=== PATIENT | male | born 1950 | race Caucasian/White ===

== ENCOUNTER → 2017-09-14 | Outpatient (CLI) | payer OTHER ==
[~2017-09-14] MED LIST: ASPEC81 PO; CRD200 PO; LRT5 PO; METO50TA8 PO; SIMV10TA2 PO; SYN75 PO
[2017-09-14 10:08] LABS: AST/SGOT 39 U/L (15-37); BLOOD UREA NITROGEN 16 mg/dl (7-18); CHOLESTEROL 139 mg/dl (0-200); CREATININE 1.18 mg/dl (0.60-1.40)
[2017-09-14 10:18] LABS: ALT/SGPT 48 U/L (12-78); LDL CHOLESTEROL CALCULATED 78 mg/dl
== END | disposition home or self-care (01) ==
LOC: C.LABBC 08:43
PROVIDERS: ATTEND Internal Medicine
DX: E78.00 Pure hypercholesterolemia, unspecified (principal); E03.9 Hypothyroidism, unspecified; Z12.5 Encounter for screening for malignant neoplasm of prostate

== ENCOUNTER 2025-03-07 17:02 | Inpatient (IN) ==
--- NOTE | 2025-03-07 17:52 | Emergency Department Note ---
Impression & Plan Cellulitis of scrotum ED Provider Note NAME: UZIEL RODRIGUEZ AGE: 74 SEX: M : 1950 ARRIVES VIA: Walk-In INFORMANT: Patient, ED PROVIDER(S): Cliff Leija DO CHIEF COMPLAINT: Scrotal pain and swelling HPI: The patient is a 74-year-old male who presented to the emergency department with several days of scrotal pain and swelling. He was seen by his primary care physician. He started having blistering around the shaft of his penis. This is why he came to the emergency department. He is noticed redness and induration around the scrotum. He did have an ultrasound prior to coming to the emergency department today. 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 Initially thought this could be related to a fungal infection. ROS: See above HPI for pertinent positives & negatives. A total of 10 systems reviewed and were otherwise negative. PAST MEDICAL HISTORY: See Below PAST SURGICAL HISTORY: See Below FAMILY HISTORY: See Below SOCIAL HISTORY: See Below HOME MEDICATIONS: See Below ALLERGIES: See Below VITALS: See Below PHYSICAL EXAMINATION: GENERAL: Patient is awake alert in no acute distress patient is resting comfortably and showing no signs of anxiety EYES: The conjunctivae are clear. The pupils are round and reactive. EARS, NOSE, MOUTH AND THROAT: The nose is without any evidence of any deformity. NECK: The neck is nontender and supple. RESPIRATORY: Normal respiratory effort is noted there is no evidence of wheezing rhonchi or rales CARDIOVASCULAR: Regular rate and rhythm noted there no murmurs rubs or gallops normal S1 normal S2. GASTROINTESTINAL: The abdomen is soft. Abdomen is nontender. : Scrotum is very erythematous and indurated. The skin on the penis does appear to have some desquamation of blister formation. This does not appear to be herpetic in nature but 1 coalescing blister. It is circumferential. MUSCULOSKELETAL/EXTREMITIES: There is no evidence of gross deformity full range of motion is noted in the hips and shoulders. SKIN: There is no obvious evidence of any rash. There are no petechiae, pallor or cyanosis noted. NEUROLOGIC: Patient is awake alert and oriented x3 MEDICAL DECISION MAKING: The patient is a 74-year-old male who presented to the emergency department for an evaluation of scrotal swelling and redness. The patient was seen by his family doctor today. He had an ultrasound which did not show any acute process. He started noticing some swelling over the shaft of his penis with some blistering and abnormality the skin. The patient presented to the emergency department for further evaluation. Evaluation of the area does appear to be consistent with a scrotal cellulitis. It is also possible this represents an underlying fungal infection with a secondary bacterial infection. The patient was treated with IV antibiotics in emergency department. He was reevaluated multiple times. I discussed his condition with the on-call urologist as well as the on-call [facility] hospitalist. They have agreed to evaluate the patient in the emergency department for further management and disposition. Triage Nursing notes reviewed. Prior medical records reviewed Vital Signs: reviewed and remarkable for elevated blood pressure. Differential diagnosis: Testicular torsion, mass, infection, hernia, hydrocele, epididymitis, STI, trauma, intra-abdominal process, as well as other pathologies. ER treatment provided: See below Diagnostics interpreted by me: ECG: none Cardiac Monitoring: An order was placed for continuous cardiac monitoring. The monitor shows a rate of 77 bpm with sinus rhythm. Laboratory studies: As stated above and show below. Imaging studies: See below. Radiographic imaging was reviewed by myself Consultation(s): I discussed this case with Dr. Clancy who is on-call for the [facility]. I discussed this case with Dr. Lane who is on for urology. Past Med/Surg History Problem List (Updated 03/07/25 @ 20:08 by Cliff Leija DO) Cellulitis of scrotum (Acute) Cataract Osteoarthritis of right index finger History of colon polyps Esophageal stenosis Numbness and tingling of both feet Since approximately 2016 Elevated hemoglobin November 2019 follow-up test December 2019 normal Esophageal dysphagia EGD November 2019 esophagitis GERD (gastroesophageal reflux disease) Health care maintenance (Chronic) Actinic keratosis Hypercholesterolemia (Acute) Atorvastatin 20 mg daily for management Hypothyroidism (Acute) On thyroid supplement Impaired fasting glucose (Acute) Moderate mitral regurgitation (Acute) FOLLOWS WITH DR. RODRIGUEZ Permanent atrial fibrillation (Acute) REASON FOR METOPROLOL Medical History Finger tendinitis Finger swelling Polyp, colonic Neuropathy Since approximately 2016 Permanent atrial fibrillation on eliquis/metoprolol---follows with Dr. Rodriguez Moderate mitral regurgitation follows with Dr. Rodriguez Hypothyroidism Hypercholesterolemia Gout GERD (gastroesophageal reflux disease) Flatulence hx Abdominal bloating hx Elevated serum creatinine hx Unspecified skin changes Finger pain resolved Esophageal stenosis hx Osteoarthritis Dysphagia hx Numbness MILD IN BLE Sessile colonic polyp Surgical History Hx of cataract extraction left and right History of esophagogastroduodenoscopy (EGD) History of esophageal dilatation History of anesthesia reaction HEADACHE WITH FIRST CARDIOVERSION [place] teeth removed History of colonoscopy History of cardioversion X 3 History of biopsy TONGUE BIOPSY (BENIGN) Family History Father A-fib Mother Gout Stroke Other No family history of adverse response to anesthesia Denies family history of Colon cancer Ovarian cancer Prostate cancer Myocardial infarction Breast cancer Social History Smoking Status: Never smoker Second Hand Exposure: No; Do You Dip or Chew Tobacco: No; Hx Alcohol Use: Yes Alcohol type: beer Hx Substance Use: No Preferred Language: Greenlandic Communication Ability: Effective Visual Impairment: No Limitations Hearing Ability: Normal School Age Program Associate Required: No Beliefs That Will Affect Care: None marital status: Current Living Situation: Spouse 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 Feels Safe at Home: Yes Childhood Exposure to Second-Hand Smoke: Yes Dental Care, Regularly: Yes Physical Activity Frequency: 1-2 Times per Week Seatbelt Use: always Sunscreen Use: Yes Assistive Devices: Glasses Allergies Allergies Allergy/AdvReac Type Severity Reaction Status Date / Time HAND CREAMS Allergy Mild rash/rednes Uncoded 03/07/25 12:12 s Home Meds Home Medications Medication Instructions Recorded Confirmed [id number] 5 mg-zeaxanth 1 cap PO QAM 04/22/24 03/07/25 1 mg-bilberry 7.5 mg-herbal capsule (Macular Health Formula) Previous Rx's Medication Instructions Recorded metoprolol succinate 50 mg 50 mg PO QAM #90 tabs 08/08/24 tablet,extended release 24 hr apixaban 5 mg tablet 5 mg PO BID #180 tabs 08/09/24 atorvastatin 20 mg tablet 20 mg PO QPM #90 tabs 08/09/24 levothyroxine 75 mcg tablet 75 mcg PO QAM #90 tabs 08/09/24 nystatin 100,000 unit/gram topical 1 applic topical BID #30 grams 03/07/25 ointment sulfamethoxazole 800 1 tab PO BID 10 days #20 tabs 03/07/25 mg-trimethoprim 160 mg tablet (Bactrim DS) Results & Data (ED) Vital Signs Vital Signs - 24 hr 03/07/25 17:07 03/07/25 18:01 03/07/25 18:01 Temperature 36.6 C Temperature Source Temporal Artery Scan Pulse Rate 109 H Pulse Rate [Right Finger] 71 Pulse Rhythm [Right Finger] Regular Pulse Strength [Right Finger] Normal Respiratory Rate 18 12 Respiratory Effort / Characteristics Non-Labored Spontaneous Non-Labored Respiratory Depth Normal Normal Respiratory Pattern Regular Regular Blood Pressure 160/84 H Blood Pressure [Right Arm] 126/91 Blood Pressure Mean 109 Blood Pressure Mean [Right Arm] 102 Blood Pressure Position [Right Arm] Lying Pulse Oximetry 96 96 96 Oxygen Delivery Method Room Air Room Air Room Air Sepsis Recent Fever Within 48 Hours No Sepsis New/Unexplained Change in Mental Status No Sepsis Action Taken by Nursing No Action Required 03/07/25 18:19 03/07/25 19:21 Temperature Temperature Source Pulse Rate 79 Pulse Rate [Right Finger] 77 Pulse Rhythm [Right Finger] Pulse Strength [Right Finger] Respiratory Rate 16 Respiratory Effort / Characteristics Respiratory Depth Respiratory Pattern Blood Pressure Blood Pressure [Right Arm] 163/102 H Blood Pressure Mean Blood Pressure Mean [Right Arm] 122 Blood Pressure Position [Right Arm] Pulse Oximetry 97 Oxygen Delivery Method Sepsis Recent Fever Within 48 Hours Sepsis New/Unexplained Change in Mental Status Sepsis Action Taken by Long Term Medications Current Medication List: was personally reviewed by me Laboratory Data Attestation: I reviewed the patient's lab results. 03/07/25 18:05 03/07/25 18:05 Lab Results 03/07/25 03/07/25 Range/Units 18:05 19:15 WBC 13.49 H (4.8-10.8) K/ul RBC 6.09 (4.70-6.10) M/uL Hgb 17.0 (14.0-18.0) g/dl Hct 50.5 (42.0-52.0) % MCV 82.9 (80.0-100.0) fL MCH 27.9 (25.0-34.0) pg MCHC 33.7 (32.0-36.0) g/dL RDW Std Deviation 41.8 (36.4-46.3) fL RDW Coeff of Dat 14.4 (11.5-14.5) % Plt Count 245 (130-400) K/uL MPV 10.5 (9.4-12.4) fL Immature Gran % (Auto) 0.4 % Neut % (Auto) 69.6 % Lymph % (Auto) 15.9 % Tama % (Auto) 7.6 % Eos % (Auto) 5.9 % Baso % (Auto) 0.6 % Neut # (Auto) 9.40 H (1.40-6.50) K/uL Lymph # (Auto) 2.14 (1.20-3.40) K/uL Tama # (Auto) 1.03 H (0.11-0.59) K/uL Eos # (Auto) 0.79 H (0.00-0.50) K/uL Baso # (Auto) 0.08 (0.00-0.20) K/uL Immature Gran # (Auto) 0.05 (0.01-0.20) K/uL Sodium 141 (136-145) mmol/L Potassium 4.2 (3.5-5.1) mmol/L Chloride 104 (98-107) mmol/L Carbon Dioxide 28 (21-32) mmol/L Anion Gap 9 (3-11) BUN 16 (6-23) mg/dl Creatinine 1.24 (0.6-1.4) mg/dl Est Cr Clr Drug Dosing 62.6 ml/min eGFR 61.77 BUN/Creatinine Ratio 12.9 (10-20) Glucose 75 (70-99(Fasting)) mg/dl Calcium 9.7 (8.6-10.3) mg/dl Total Bilirubin 1.0 (0.2-1.0) mg/dl AST 24 (13-39) U/L ALT 25 (7-52) U/L Alkaline Phosphatase 77 (34-104) U/L C-Reactive Protein < 0.50 (0-0.5) mg/dl Total Protein 7.8 (6.0-8.3) gm/dl Albumin 4.2 (3.4-5.0) gm/dl Globulin 3.6 (2.5-4.0) gm/dl Albumin/Globulin Ratio 1.2 (0.9-2) Procalcitonin < 0.02 (0-0.5) ng/ml Urine Color Yellow Urine Appearance Clear (Clear) Urine pH 7.0 (4.5-7.5) Ur Specific [place] 1.017 (1.000-1.030) Urine Protein Negative (Negative) Urine Glucose (UA) Negative (Negative) Urine Ketones Negative (Negative) Urine Blood Negative (Negative) Urine Nitrite Negative (Negative) Urine Bilirubin Negative (Negative) Urine Urobilinogen Negative (Negative) Ur Leukocyte Esterase Negative (Negative) Urine Comment Administered Medications Discontinued Medications Piperacillin Sod/Tazobactam Sod (Zosyn) 4.5 gm in 100 mls @ 200 mls/hr IV NOW ONE; Protocol Stop: 03/07/25 18:19 Last Infusion: 03/07/25 18:44 Dose: Infused Documented By: Admin: 03/07/25 18:10 Dose: 200 mls/hr Documented By: NNEKA Imaging Data Attestation: I personally reviewed and interpreted this imaging study as follows: My Impression: CT of the abdomen and pelvis was obtained in the emergency department. My interpretation is no free air in the scrotal wall, final report below. Radiologist's Impression: Abdomen/Pelvis CT 03/07/25 18:48 EXAMINATION: Abdomen and pelvis CT without CLINICAL HISTORY: Scrotal swelling since last night PRIORS: None TECHNIQUE: Contiguous axial images were obtained through the abdomen and pelvis without the use of intravenous contrast. Sagittal and coronal reformations are supplied. FINDINGS: Lung bases unremarkable. Atherosclerotic disease of the coronary arteries in the [id number]. Evaluation of solid organs is limited without the use of intravenous contrast. Allowing for this, the liver, gallbladder, pancreas, spleen, stomach, adrenals, aorta and IVC are morphologically unremarkable. Moderate atherosclerotic disease of the abdominal aorta. Multiple calcified granulomata present in the spleen. The kidneys are symmetric in size with no obstructing calculus or hydronephrosis. Large amount of formed stool and gas present throughout the colon. No dilated loops of bowel. Urinary bladder distends normally. Diffuse edema present in the subcutaneous tissues of the supra scrotal/penile area. Skin edema of the scrotum is noted with bilateral hydroceles present. Small bilateral inguinal hernias present. The testicles themselves are not well-visualized. No gas within the scrotum or perineum. Moderate osseous demineralization and degenerative change throughout the spine. IMPRESSION: Subcutaneous edema of the supra scrotal soft tissues with skin thickening and edema of the scrotal wall, bilateral hydroceles and no subcutaneous gas identified. Findings favor cellulitis in the proper clinical setting. Scrotal ultrasound could also be considered as it is more sensitive and specific for scrotal and testicular pathology. ACT 112: Positive. There are findings on this examination that require communication between the performing entity and the patient following Patient Test Result Information Act ([place] ACT 112) guidelines. Electronically signed by Tiny Whaley 03-07-2025 8:02 PM Discharge Plan Visit Data Chief Complaint: Penis Pain Stated Complaint: GENITAL SWELLING SINCE LAST NIGHT ED Provider: Cliff Leija Discharge Problem: Cellulitis of scrotum Patient Disposition: Being Evaluated by Hospitalist Condition: Fair Forms Stand Alone Forms: My [facility] Prescriptions Prescriptions: No Action metoprolol succinate 50 mg tablet extended release 24 hr 50 mg PO QAM Qty: 90 3RF levothyroxine 75 mcg tablet 75 mcg PO QAM Qty: 90 3RF atorvastatin 20 mg tablet 20 mg PO QPM Qty: 90 3RF apixaban 5 mg tablet 5 mg PO BID Qty: 180 3RF sulfamethoxazole-trimethoprim [Bactrim DS] 800-160 mg tablet 1 tab PO BID 10 Days Qty: 20 0RF nystatin 100,000 unit/gram ointment 1 applic topical BID Qty: 30 0RF Macular Health Formula 5-1-7.5 mg Capsule 1 cap PO QAM Referrals Referrals: Palomo Navarro MD [Primary Care Provider] -
[2025-03-07] MEDS: PIPERACILLIN/TAZOBACTAM 4.5 GM/100 ML BAG IV ONE (18:10)
[2025-03-07 18:16] LABS: Hematocrit (blood only) 50.5 % (42.0-52.0); Hemoglobin 17.0 g/dl (14.0-18.0); Immature Granulocytes # (auto) 0.05 K/uL (0.01-0.20); Immature Granulocytes % (auto) 0.4 %; Mean Corpuscular Hemoglobin 27.9 pg (25.0-34.0); Mean Corpuscular Volume 82.9 fL (80.0-100.0); Platelet Count 245 K/uL (130-400); RDW Standard Deviation 41.8 fL (36.4-46.3); Red Blood Count 6.09 M/uL (4.70-6.10); White Blood Count 13.49 K/ul (4.8-10.8)
[2025-03-07 18:32] LABS: Alanine Aminotransferase 25 U/L (7-52); Albumin Globulin Ratio 1.2 (0.9-2); Albumin Level 4.2 gm/dl (3.4-5.0); Alkaline Phosphatase 77 U/L (34-104); Anion Gap 9 (3-11); Bilirubin,Total 1.0 mg/dl (0.2-1.0); Blood Urea Nitrogen 16 mg/dl (6-23); Calcium 9.7 mg/dl (8.6-10.3); Carbon Dioxide 28 mmol/L (21-32); Chloride 104 mmol/L (98-107); Creatinine Clr Calc Pharmacy 62.6 ml/min; Globulin 3.6 gm/dl (2.5-4.0); Glucose 75 mg/dl (70-99(Fasting)); Potassium 4.2 mmol/L (3.5-5.1); Sodium 141 mmol/L (136-145); Total Protein 7.8 gm/dl (6.0-8.3)
[2025-03-07] MEDS ORDERED: VANCOMYCIN CONSULT ACTIVE PRN ×2 (19:25→21:54)
[2025-03-07 19:30] LABS: Appearance Urine Clear (Clear); Glucose Urine UA Negative (Negative)
--- NOTE | 2025-03-07 19:41 | History & Physical Report ---
Date of Service March 07, 2025 Assessment & Plan (1) Cellulitis of scrotum: (2) Permanent atrial fibrillation: (3) Hypercholesterolemia: (4) Hypothyroidism: Plan 74yo male with history of permanent atrial fibrillation on Apixaban anticoagulation presenting with rapid progression of scrotal and penile swelling, preceded by 1+ week of tinea infection #Cellulitis of scrotum - patient afebrile, HD stable and non-toxic in appearance. CT with no evidence of Brandi's infection. -Observation to medical -Scrotal support for comfort -Vancomycin and Ceftriaxone for now -Urology consultation appreciated #Atrial fibrillation - rate controlled. Patient on anticoagulation with Api xaban -Continue Apixaban 5mg po BID -Continue Metoprolol #Hyperlipidemia - chronic. stable -Continue Atorvastatin #Hypothyroidism - chronic. stable. TSH last within normal limits at 2.030 on 08/17/24 -Continue Synthroid Full Code Apixaban for AF, DVT prophylaxis History of Present Illness Chief Complaint: scrotal swelling, rash Primary Care Provider: Palomo Navarro MD Uziel Chino is a pleasant 74yo male with history of atrial fibrillation on Apixaban anticoagulation, HLP and GERD presenting with groin rash and progressive swelling in the scrotum and penis. Patient is a fairly avid cyclist. He last biked approximately one week ago. Patient noted some symptoms of tinea cruris approximately 10 days ago with itching in his groin and skin irritation. He let it go for a couple of days then started using some over the counter cream from [employer] and powder. The itching has progressively worsened over the last 10 days. Last night around 17:00 patient noted some scrotal swelling which was markedly increased today. He urinated around 09:30 and noted some swelling at the base of his penis - approximately 2cm x 1cm x 1cm. He was seen in his PCPs office today at 12:30. He had a scrotal ultrasound performed which revealed no testicular masses or torsions. Prominent edematous scrotal wall without discrete fluid collection and no hydrocele. He was prescribed Nystatin powder and Bactrim. Patient returned home. Approximately 1 hour later he noted some markedly increased scrotal swelling which prompted him to come to the ER. He has been afebrile, no chills. No abdominal pain or pelvic pain. No nausea, vomiting, chest pain, palpitations. No additional complaints at this time. No trauma. No urinary complaints. In the ER he is afebrile, HD stable, NAD ER Course: Zosyn Allergies Allergy/AdvReac Type Severity Reaction Status Date / Time HAND CREAMS Allergy Mild rash/rednes Uncoded 03/07/25 12:12 s Home Medications Medication Instructions Recorded Confirmed Type [id number] 5 mg-zeaxanth 1 cap PO QAM 04/22/24 03/07/25 History 1 mg-bilberry 7.5 mg-herbal capsule ([employer] Formula) metoprolol succinate 50 mg 50 mg PO QAM #90 tabs 08/08/24 03/07/25 Rx tablet,extended release 24 hr apixaban 5 mg tablet 5 mg PO BID #180 tabs 08/09/24 03/07/25 Rx atorvastatin 20 mg tablet 20 mg PO QPM #90 tabs 08/09/24 03/07/25 Rx levothyroxine 75 mcg tablet 75 mcg PO QAM #90 tabs 08/09/24 03/07/25 Rx nystatin 100,000 unit/gram topical 1 applic topical BID #30 grams 03/07/25 03/07/25 Rx ointment sulfamethoxazole 800 1 tab PO BID 10 days #20 tabs 03/07/25 03/07/25 Rx mg-trimethoprim 160 mg tablet (Bactrim DS) Past Med/Surg History Problem List Cellulitis of scrotum (Acute) Cataract Osteoarthritis of right index finger History of colon polyps Esophageal stenosis Numbness and tingling of both feet Since approximately 2016 Elevated hemoglobin November 2019 follow-up test December 2019 normal Esophageal dysphagia EGD November 2019 esophagitis GERD (gastroesophageal reflux disease) Health care maintenance (Chronic) Actinic keratosis Hypercholesterolemia (Acute) Atorvastatin 20 mg daily for management Hypothyroidism (Acute) On thyroid supplement Impaired fasting glucose (Acute) Moderate mitral regurgitation (Acute) FOLLOWS WITH DR. RODRIGUEZ Permanent atrial fibrillation (Acute) REASON FOR METOPROLOL Medical History Finger tendinitis Finger swelling Polyp, colonic Neuropathy Since approximately 2016 Permanent atrial fibrillation on eliquis/metoprolol---follows with Dr. Rodriguez Moderate mitral regurgitation follows with Dr. Rodriguez Hypothyroidism Hypercholesterolemia Gout GERD (gastroesophageal reflux disease) Flatulence hx Abdominal bloating hx Elevated serum creatinine hx Unspecified skin changes Finger pain resolved Esophageal stenosis hx Osteoarthritis Dysphagia hx Numbness MILD IN BLE Sessile colonic polyp Surgical History Hx of cataract extraction left and right History of esophagogastroduodenoscopy (EGD) History of esophageal dilatation History of anesthesia reaction HEADACHE WITH FIRST CARDIOVERSION [place] teeth removed History of colonoscopy History of cardioversion X 3 History of biopsy TONGUE BIOPSY (BENIGN) Family History Father A-fib Mother Gout Stroke Other No family history of adverse response to anesthesia Denies family history of Colon cancer Ovarian cancer Prostate cancer Myocardial infarction Breast cancer Social History Smoking Status: Never smoker Second Hand Exposure: No; Do You Dip or Chew Tobacco: No; Hx Alcohol Use: Yes Alcohol type: beer Hx Substance Use: No Preferred Language: Cymraes Communication Ability: Effective Visual Impairment: No Limitations Hearing Ability: Normal 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: No Beliefs That Will Affect Care: None marital status: Current Living Situation: Spouse 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 Feels Safe at Home: Yes Childhood Exposure to Second-Hand Smoke: Yes Dental Care, Regularly: Yes Physical Activity Frequency: 1-2 Times per Week Seatbelt Use: always Sunscreen Use: Yes Assistive Devices: Glasses Review of Systems Review of Systems: All systems reviewed & are unremarkable except as noted in HPI & below Physical Exam Physical Exam: General: patient resting comfortably, NAD, non-toxic in appearance, AA&O x 4 Skin: warm, dry, intact, no rashes or lesions HEENT: NC/AT, PERRL, EOMI, anicteric sclera, conjunctiva without injection, external ear normal to inspection and nontender, nares patent, moist mucus membranes, dentition intact, no oropharyngeal lesions, neck supple, trachea midline, no LAD, no thyromegaly, no JVD Heart: +S1/S2, regular, no m/r/g Lungs: equal air entry bilaterally, no rales/rhonchi/wheezes Abd: +BS, soft, NT/ND, no masses/organomegaly/ascites Ext: warm, 2+ pulses in UE/LE bilaterally, no clubbing/cyanosis or edema Significant edema of testicles bilaterally with warmth, tenderness, skin thickening of perineum, no crepitus or bullae. No tenderness with palpation of testicles. Swelling of penis Groin with well demarcated erythematous rash with scaling and satelite lesions Neuro: nonfocal, patient AA&O x 4, speech intact, no facial droop, moving all extremities on command with equal strength 5/5 Results & Data Results & Data Vital Signs (Past 12 Hours) Vital Signs Temp Pulse Pulse Resp BP BP Pulse Ox 03/07/25 19:21 77 16 163/102 H 97 03/07/25 18:19 79 03/07/25 18:01 96 03/07/25 18:01 71 12 126/91 96 03/07/25 17:07 36.6 C 109 H 18 160/84 H 96 O2 Del Method 03/07/25 19:21 03/07/25 18:19 03/07/25 18:01 Room Air 03/07/25 18:01 Room Air 03/07/25 17:07 Room Air Laboratory Results Laboratory Results WBC 13.49 K/ul (4.8-10.8) H 03/07/25 18:05 RBC 6.09 M/uL (4.70-6.10) 03/07/25 18:05 Hgb 17.0 g/dl (14.0-18.0) 03/07/25 18:05 Hct 50.5 % (42.0-52.0) 03/07/25 18:05 MCV 82.9 fL (80.0-100.0) 03/07/25 18:05 MCH 27.9 pg (25.0-34.0) 03/07/25 18:05 MCHC 33.7 g/dL (32.0-36.0) 03/07/25 18:05 RDW Std Deviation 41.8 fL (36.4-46.3) 03/07/25 18:05 RDW Coeff of Dat 14.4 % (11.5-14.5) 03/07/25 18:05 Plt Count 245 K/uL (130-400) 03/07/25 18:05 MPV 10.5 fL (9.4-12.4) 03/07/25 18:05 Immature Gran % (Auto) 0.4 % 03/07/25 18:05 Neut % (Auto) 69.6 % 03/07/25 18:05 Lymph % (Auto) 15.9 % 03/07/25 18:05 [place] % (Auto) 7.6 % 03/07/25 18:05 Eos % (Auto) 5.9 % 03/07/25 18:05 Baso % (Auto) 0.6 % 03/07/25 18:05 Neut # (Auto) 9.40 K/uL (1.40-6.50) H 03/07/25 18:05 Lymph # (Auto) 2.14 K/uL (1.20-3.40) 03/07/25 18:05 [place] # (Auto) 1.03 K/uL (0.11-0.59) H 03/07/25 18:05 Eos # (Auto) 0.79 K/uL (0.00-0.50) H 03/07/25 18:05 Baso # (Auto) 0.08 K/uL (0.00-0.20) 03/07/25 18:05 Immature Gran # (Auto) 0.05 K/uL (0.01-0.20) 03/07/25 18:05 Sodium 141 mmol/L (136-145) 03/07/25 18:05 Potassium 4.2 mmol/L (3.5-5.1) 03/07/25 18:05 Chloride 104 mmol/L (98-107) 03/07/25 18:05 Carbon Dioxide 28 mmol/L (21-32) 03/07/25 18:05 Anion Gap 9 (3-11) 03/07/25 18:05 BUN 16 mg/dl (6-23) 03/07/25 18:05 Creatinine 1.24 mg/dl (0.6-1.4) 03/07/25 18:05 Est Cr Clr Drug Dosing 62.6 ml/min 03/07/25 18:05 eGFR 61.77 03/07/25 18:05 BUN/Creatinine Ratio 12.9 (10-20) 03/07/25 18:05 Glucose 75 mg/dl (70-99(Fasting)) 03/07/25 18:05 Calcium 9.7 mg/dl (8.6-10.3) 03/07/25 18:05 Total Bilirubin 1.0 mg/dl (0.2-1.0) 03/07/25 18:05 AST 24 U/L (13-39) 03/07/25 18:05 ALT 25 U/L (7-52) 03/07/25 18:05 Alkaline Phosphatase 77 U/L (34-104) 03/07/25 18:05 C-Reactive Protein < 0.50 mg/dl (0-0.5) 03/07/25 18:05 Total Protein 7.8 gm/dl (6.0-8.3) 03/07/25 18:05 Albumin 4.2 gm/dl (3.4-5.0) 03/07/25 18:05 Globulin 3.6 gm/dl (2.5-4.0) 03/07/25 18:05 Albumin/Globulin Ratio 1.2 (0.9-2) 03/07/25 18:05 Procalcitonin < 0.02 ng/ml (0-0.5) 03/07/25 18:05 Urine Color Yellow 03/07/25 19:15 Urine Appearance Clear (Clear) 03/07/25 19:15 Urine pH 7.0 (4.5-7.5) 03/07/25 19:15 Ur Specific [place] 1.017 (1.000-1.030) 03/07/25 19:15 Urine Protein Negative (Negative) 03/07/25 19:15 Urine Glucose (UA) Negative (Negative) 03/07/25 19:15 Urine Ketones Negative (Negative) 03/07/25 19:15 Urine Blood Negative (Negative) 03/07/25 19:15 Urine Nitrite Negative (Negative) 03/07/25 19:15 Urine Bilirubin Negative (Negative) 03/07/25 19:15 Urine Urobilinogen Negative (Negative) 03/07/25 19:15 Ur Leukocyte Esterase Negative (Negative) 03/07/25 19:15 Urine Comment 03/07/25 19:15 Impressions Abdomen/Pelvis CT 03/07/25 18:48 EXAMINATION: Abdomen and pelvis CT without CLINICAL HISTORY: Scrotal swelling since last night PRIORS: None TECHNIQUE: Contiguous axial images were obtained through the abdomen and pelvis without the use of intravenous contrast. Sagittal and coronal reformations are supplied. FINDINGS: Lung bases unremarkable. Atherosclerotic disease of the coronary arteries in the [id number]. Evaluation of solid organs is limited without the use of intravenous contrast. Allowing for this, the liver, gallbladder, pancreas, spleen, stomach, adrenals, aorta and IVC are morphologically unremarkable. Moderate atherosclerotic disease of the abdominal aorta. Multiple calcified granulomata present in the spleen. The kidneys are symmetric in size with no obstructing calculus or hydronephrosis. Large amount of formed stool and gas present throughout the colon. No dilated loops of bowel. Urinary bladder distends normally. Diffuse edema present in the subcutaneous tissues of the supra scrotal/penile area. Skin edema of the scrotum is noted with bilateral hydroceles present. Small bilateral inguinal hernias present. The testicles themselves are not well-visualized. No gas within the scrotum or perineum. Moderate osseous demineralization and degenerative change throughout the spine. IMPRESSION: Subcutaneous edema of the supra scrotal soft tissues with skin thickening and edema of the scrotal wall, bilateral hydroceles and no subcutaneous gas identified. Findings favor cellulitis in the proper clinical setting. Scrotal ultrasound could also be considered as it is more sensitive and specific for scrotal and testicular pathology. ACT 112: Positive. There are findings on this examination that require communication between the performing entity and the patient following Patient Test Result Information Act ([place] ACT 112) guidelines. Electronically signed by Tiny Whaley 03-07-2025 8:02 PM Diagnostic Findings [place], [place] [phone] Ultrasound Report Patient: UZIEL CHINO Admit Date: 03/07/25 MR#: [id number] Address1: [address] [place] [address] Acct ID:[id number] Address2: Date: 1950 [facility] Zip: [place] [address] Age: 74 Location: [place] Sex: M Room/Bed: Att Phy: Carolina Carvalho PA-C Diagnosis: N50.89 - Other specified disorders of the male gen Gabi Phy: RV. Johnson MD Service Date: 03/07/25 Fam Phy: Interpreting Phy: Onesimo LoweryAdmit Phy: Ordering Phy: Carolina Carvalho PA-C cc: ~ US scrotum/testicle CLINICAL HISTORY: 74 years-old Male with N50.89 - Other specified disorders of the male genital or.... Acute pain and swelling of the scrotum COMPARISON STUDY: None TECHNIQUE: Real-time, grayscale, and color Doppler sonography of the testes and scrotum is performed. Images are reviewed in the transverse and longitudinal planes. FINDINGS: RIGHT HEMISCROTUM: The right testis measures 4.2 x 2.4 x 2.1 cm and the parenchyma appears unremarkable. No intratesticular mass is seen. Normal- appearing arterial inflow is present within the right testicle. 6 mm epididymal head cyst. No varicocele or hydrocele is identified. LEFT HEMISCROTUM: The left testis measures 3.8 x 2.6 x 1.7 cm and the parenchyma appears unremarkable. Subcentimeter low suspicion cystic focus noted on image 25 within the testicle. No intratesticular suspicious mass is seen. Normal- appearing arterial inflow is present within the left testicle. 3 mm epididymal head cyst. No varicocele or hydrocele is identified. Prominent edematous scrotal wall. No discrete fluid collection. IMPRESSION: 1. No testicular torsion or suspicious testicular mass. 2. Subcentimeter epididymal head cysts. 3. Prominent edematous scrotal wall without discrete fluid collection. 4. No hydrocele. ACT 112: Negative or not required by law. The above report was generated using voice recognition software. It may contain grammatical, syntax or spelling errors. Electronically signed by: Onesimo Lowery M.D. 03/07/2025 3:16 PM Dictated: 03/07/25 1513 Transcribed: 03/07/25 1513 PG Care Time/CCT Total # of Minutes Spent Total Time Spent with Patient: Total time spent is greater than 50% in coordination of care (as documented) at patient's floor/unit and/or counseling patient: Coding Level of Care Code 65585 INT INP/OBS CARE 3/75MIN Diagnoses Cellulitis of scrotum N49.2 Permanent atrial fibrillation I48.2 Hypercholesterolemia E78.00 Hypothyroidism E03.9
--- NOTE | 2025-03-07 20:02 | CT Scan Report ---
EXAMINATION: Abdomen and pelvis CT without CLINICAL HISTORY: Scrotal swelling since last night PRIORS: None TECHNIQUE: Contiguous axial images were obtained through the abdomen and pelvis without the use of intravenous contrast. Sagittal and coronal reformations are supplied. FINDINGS: Lung bases unremarkable. Atherosclerotic disease of the coronary arteries in the [id number]. Evaluation of solid organs is limited without the use of intravenous contrast. Allowing for this, the liver, gallbladder, pancreas, spleen, stomach, adrenals, aorta and IVC are morphologically unremarkable. Moderate atherosclerotic disease of the abdominal aorta. Multiple calcified granulomata present in the spleen. The kidneys are symmetric in size with no obstructing calculus or hydronephrosis. Large amount of formed stool and gas present throughout the colon. No dilated loops of bowel. Urinary bladder distends normally. Diffuse edema present in the subcutaneous tissues of the supra scrotal/penile area. Skin edema of the scrotum is noted with bilateral hydroceles present. Small bilateral inguinal hernias present. The testicles themselves are not well-visualized. No gas within the scrotum or perineum. Moderate osseous demineralization and degenerative change throughout the spine. IMPRESSION: Subcutaneous edema of the supra scrotal soft tissues with skin thickening and edema of the scrotal wall, bilateral hydroceles and no subcutaneous gas identified. Findings favor cellulitis in the proper clinical setting. Scrotal ultrasound could also be considered as it is more sensitive and specific for scrotal and testicular pathology. ACT 112: Positive. There are findings on this examination that require communication between the performing entity and the patient following Patient Test Result Information Act ([place] ACT 112) guidelines. Electronically signed by Tiny Whaley 03-07-2025 8:02 PM
[2025-03-07] MEDS: VANCOMYCIN HCL 1,750 MG in SODIUM CHLORIDE 0.9% 500 ML IV ONE (20:13)
[2025-03-07] MEDS ORDERED: MELATONIN 3 MG TAB PO PRN (21:54)
[2025-03-07] MEDS ORDERED: ONDANSETRON INJ 2 MG/ML 2 ML VIAL IV PRN (21:54)
[2025-03-07] MEDS ORDERED: ACETAMINOPHEN 325 MG TAB PO PRN (21:54)
[2025-03-07] MEDS ORDERED: VANCOMYCIN HCL / NSS 1,000 MG/270 ML BAG IV SCH (21:54)
[2025-03-07] MEDS ORDERED: DOCUSATE SODIUM 100 MG CAP PO PRN (21:54)
[2025-03-07] MEDS: ATORVASTATIN 20 MG TAB PO SCH (22:50)
[2025-03-07] MEDS: APIXABAN 5 MG TABLET PO SCH (22:50)
[2025-03-07] MEDS: NYSTATIN OINT 15 GM TUBE EXT SCH (22:50)
[2025-03-07] MEDS: cefTRIAXone SODIUM 2,000 MG/50 ML BAG IV SCH (22:50)
[2025-03-07] MEDS: CLOTRIMAZOLE 1% CR 15 GM TUBE EXT SCH (22:50)
--- NOTE | 2025-03-08 00:21 | Pharmacy Report ---
Pharmacy PK ABX Note - Date of Service March 08, 2025 - Assessment and Plan Assessment 74 year old M receiving ceftriaxone/vancomycin for treatment of cellulitis of the scrotum. P Day # 1 of antimicrobial therapy. Plan Vancomycin * Loading dose: 1750 mg IV x 1 * Maintenance dose: 1500 mg IV every 24 hours * Regimen is predicted to achieve target AUC/ALFIE of 400-600 mg/L.hr * Random level ordered for: 03/10/25 with AM labs Pharmacy will continue to follow and will adjust dose/frequency as necessary. Thank you. Pharmacy has transitioned to AUC monitoring for vancomycin. AUC/ALIFE is the preferred PK/PD target and is associated with decreased risk of nephrotoxicity compared to traditional trough targets.
[2025-03-08] MEDS: LEVOTHYROXINE SODIUM 75 MCG TABLET PO SCH (05:47)
--- NOTE | 2025-03-08 06:25 | Urology Consultation ---
<Statement entered by Chris Lane MD - 03/08/25 09:48> 74-year-old male with 1 to 2 weeks of scrotal itching, with acute worsening of swelling over the past 24-48 hours. He has had worsening scrotal swelling and erythema. He is not having any fevers or chills. Scrotal ultrasound demonstrated soft tissue edema but no obvious underlying pocket of infection. CT scan demonstrated soft tissue edema but no subcutaneous emphysema and no pockets concerning for abscess. I think his clinical picture is overall consistent with cellulitis and agree with antibiotics. I do not appreciate any underlying pocket of infection that requires surgical drainage at this time. I recommended that he continue to elevate the scrotum. I think a lot of the swelling is soft tissue edema. He could try compressive dressings if needed, however I think elevation and support is a good place to start. Urology will follow along Date of Consultation March 08, 2025 Assessment & Plan (1) Cellulitis of scrotum: Patient has been admitted on the hospitalist service. Urologic recommendations are as follows: The patient has been initiated on antibiotics in the form of Rocephin and vancomycin which should continue. Will monitor the patient's clinical response and adjustment of antibiotics can be made accordingly based on his clinical response Due to concern for underlying tinea the patient has been placed on Lotrimin which should also continue. We will again monitor the patient's clinical response with further recommendations to follow At the present time the patient is nontoxic-appearinghe is normotensive without tachycardia or fever. I do not appreciate any crepitus and soft tissue did not appreciate any evidence of abscess that would require surgical drainage at this point Additional recommendations were forthcoming based on his clinical course as unfolds History of Present Illness Reason for Consultation: Scrotal cellulitis Attending Physician: Deneen Clancy DO History of Present Illness This is a 74-year-old male who presented to the emergency department secondary to scrotal swelling and erythema. The patient notes that approximately 10 days ago he developed "jock itch" and treated this with an kgcn-aeh-rglpxmm powder. He then notes that this itching became worse over the ensuing several days and over the past 24 hours he noted some marked scrotal swelling which rapidly progressed and involve the shaft of his penis. He denies any fevers, shakes, or chills. He denies any back or flank pain. He notes that he has been able to urinate but notes that his urine stream does seem somewhat weaker. He also feels that at times he does not empty his bladder completely. He notes he has had "jock itch" in the past but has never progressed to this level. He notes that he is not diabetic. With his current situation he does not report any cuts, excoriations, or injuries to the area. Prior to coming to the emergency department he did see his primary care team who ordered a scrotal ultrasound which was performed yesterday and this showed no testicular torsion or testicular masses. His scrotal wall was noted to be edematous without any discrete fluid collections on the study. This since arrival to the hospital the patient has had labs and imaging which I independently reviewed. He had a CT scan of the abdomen pelvis that showed some subcutaneous edema of the scrotal tissues with skin thickening as well as bilateral hydroceles. There is no subcutaneous gas noted. Interpreting radiologist felt that this represented scrotal cellulitis. He had CBC white blood cell count was elevated 13.4. Hemoglobin and hematocrit as well as a platelet count were normal. Chemistry profile showed sodium and potassium and the BUN and creatinine were also normal. The urinalysis was negative for infection. Since admission to the hospital the patient says that his condition might be slightly better but is certainly not gotten any worse. At the time of my interview he was resting comfortably in bed he was in no distress. Allergies Allergy/AdvReac Type Severity Reaction Status Date / Time ceresin [From Eucerin] Allergy Mild rash/rednes Verified 03/08/25 00:22 s emollient combination no.33 Allergy Mild rash/rednes Verified 03/08/25 00:22 [From Eucerin] s isopropyl myristate Allergy Mild rash/rednes Verified 03/08/25 00:22 [From Eucerin] s lanolin alcohols Allergy Mild rash/rednes Verified 03/08/25 00:22 [From Eucerin] s mineral oil [From Eucerin] Allergy Mild rash/rednes Verified 03/08/25 00:22 s petrolatum,white Allergy Mild rash/rednes Verified 03/08/25 00:22 [From Eucerin] s Home Medications Medication Instructions Recorded Confirmed Type ipotluce-kjg-wvikqw 5 mg-zeaxanth 1 cap PO QAM 04/22/24 03/07/25 History 1 mg-bilberry 7.5 mg-herbal capsule ([employer] Formula) metoprolol succinate 50 mg 50 mg PO QAM #90 tabs 08/08/24 03/07/25 Rx tablet,extended release 24 hr apixaban 5 mg tablet 5 mg PO BID #180 tabs 08/09/24 03/07/25 Rx atorvastatin 20 mg tablet 20 mg PO QPM #90 tabs 08/09/24 03/07/25 Rx levothyroxine 75 mcg tablet 75 mcg PO QAM #90 tabs 08/09/24 03/07/25 Rx nystatin 100,000 unit/gram topical 1 applic topical BID #30 grams 03/07/25 03/07/25 Rx ointment sulfamethoxazole 800 1 tab PO BID 10 days #20 tabs 03/07/25 03/07/25 Rx mg-trimethoprim 160 mg tablet (Bactrim DS) Patient History Medical History Finger tendinitis Finger swelling Polyp, colonic Neuropathy Since approximately 2016 Permanent atrial fibrillation on eliquis/metoprolol---follows with Dr. Rodriguez Moderate mitral regurgitation follows with Dr. Rodriguez Hypothyroidism Hypercholesterolemia Gout GERD (gastroesophageal reflux disease) Flatulence hx Abdominal bloating hx Elevated serum creatinine hx Unspecified skin changes Finger pain resolved Esophageal stenosis hx Osteoarthritis Dysphagia hx Numbness MILD IN BLE Sessile colonic polyp Surgical History Hx of cataract extraction left and right History of esophagogastroduodenoscopy (EGD) History of esophageal dilatation History of anesthesia reaction HEADACHE WITH FIRST CARDIOVERSION [place] teeth removed History of colonoscopy History of cardioversion X 3 History of biopsy TONGUE BIOPSY (BENIGN) Family History Father A-fib Mother Gout Stroke Other No family history of adverse response to anesthesia Denies family history of Colon cancer Ovarian cancer Prostate cancer Myocardial infarction Breast cancer Social History Smoking Status: Never smoker Second Hand Exposure: No; Do You Dip or Chew Tobacco: No; Tobacco Cessation Education Requested by Patient: No Hx Alcohol Use: Yes Alcohol type: beer and wine Hx Substance Use: No Preferred Language: Serbian Communication Ability: Effective Visual Impairment: No Limitations Hearing Ability: Normal 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 Required: No Beliefs That Will Affect Care: None marital status: Current Living Situation: Spouse 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 Other Information That Helps Us Care for You: No Feels Safe at Home: Yes Safety Concerns: Feels Safe At This Time Childhood Exposure to Second-Hand Smoke: Yes Dental Care, Regularly: Yes Physical Activity Frequency: 1-2 Times per Week Seatbelt Use: always Sunscreen Use: Yes Assistive Devices: Glasses and Hospital Bed Review of Systems Review of Systems: All systems reviewed & are unremarkable except as noted in HPI & below Physical Exam Constitutional: WD/WN, vitals as above Eyes: no conjunctival abnormality ENMT: Ears: no hearing impairment and no external ear abnormality Mouth: no oropharynx abnormality Neck: trachea midline Respiratory: normal respiratory effort; no respiratory distress and no labored breathing Cardiovascular: Rate/Rhythm: regular rate and regular rhythm Gastrointestinal (Abdomen): Soft and nontender Musculoskeletal: No calf tenderness Skin: See below description Neurologic: moves all extremities Psychiatric: A+Ox3, euthymic affect Genitourinary: The patient's genitals were examined. The patient had swelling and erythema of his entire scrotum. There are no open areas or areas of drainage. There are no areas of eschar of the scrotum or perineum. Patient was also noted to have some erythema and swelling involving the shaft of his penis. On the shaft of his penis there are no open areas or areas of drainage. I did not appreciate any crepitus in any of the soft tissue Results & Data Vital Signs (Past 12 Hours) Vital Signs Temp Pulse Resp BP BP Pulse Ox O2 Del Method 03/07/25 23:23 135/82 03/07/25 21:55 Room Air 03/07/25 21:55 36.7 C 72 14 161/90 H 96 Room Air 03/07/25 21:55 Room Air 03/07/25 21:55 36.7 C 72 14 161/90 H 96 Room Air 03/07/25 21:39 16 97 03/07/25 19:21 77 16 163/102 H 97 PG Care Time/CCT Total # of Minutes Spent Total Time Spent with Patient: Total time spent is greater than 50% in coordination of care (as documented) at patient's floor/unit and/or counseling patient: Coding Level of Care Code 99414 INT INP/OBS CARE MIN Diagnoses Cellulitis of scrotum N49.2
[2025-03-08 07:48] LABS: Hematocrit (blood only) 47.9 % (42.0-52.0); Hemoglobin 16.7 g/dl (14.0-18.0); Mean Corpuscular Hemoglobin 28.8 pg (25.0-34.0); Mean Corpuscular Volume 82.7 fL (80.0-100.0); Platelet Count 227 K/uL (130-400); RDW Standard Deviation 41.4 fL (36.4-46.3); Red Blood Count 5.79 M/uL (4.70-6.10); White Blood Count 11.41 K/ul (4.8-10.8)
[2025-03-08 08:17] LABS: Anion Gap 7.0 (3-11); Blood Urea Nitrogen 15.0 mg/dl (6-23); Calcium 9.3 mg/dl (8.6-10.3); Carbon Dioxide 27.0 mmol/L (21-32); Chloride 106.0 mmol/L (98-107); Creatinine Clr Calc Pharmacy 59.2 ml/min; Glucose 95.0 mg/dl (70-99(Fasting)); Potassium 4.4 mmol/L (3.5-5.1); Sodium 140.0 mmol/L (136-145)
[2025-03-08] MEDS: METOPROLOL SUCC 50MG EXT REL TAB PO SCH (08:48)
[2025-03-08] MEDS: VANCOMYCIN HCL 1,500 MG in SODIUM CHLORIDE 0.9% 500 ML IV SCH (11:23)
--- NOTE | 2025-03-08 17:59 | Hospitalist Progress Note ---
Date of Service March 08, 2025 Assessment & Plan (1) Cellulitis of scrotum: (2) Permanent atrial fibrillation: (3) Hypercholesterolemia: (4) Hypothyroidism: Plan 74yo male with history of permanent atrial fibrillation on Apixaban anticoagulation presenting with rapid progression of scrotal and penile swelling, preceded by 1+ week of tinea infection #Cellulitis of scrotum #Tinea Cruris -PVR < 400ml -MRSA would be unusual cause of scrotal cellulitis, he is not septic, CT with no evidence of Brandi's infection, MRSA nasal swab negative - vancomycin discontinued -Continue ceftriaxone -Given no significant improvement clinically although labs look improved and started off as tinea cruris I suspect there is a significant fungal component delaying healing and will start fluconazole 200mg PO weekly in addition to nystatin powder -Elevate and use ice for swelling -Urology consultation appreciated #Atrial fibrillation -Continue Apixaban 5mg po BID -Continue Metoprolol #Hyperlipidemia -Continue Atorvastatin #Hypothyroidism -Continue Synthroid VTE Prophylaxis - apixaban Disposition - continue on med/surg pending significant clinical improvement Admission and Anticipated Discharge Date Admission Date: March 07, 2025 Subjective No significant improvement in swelling or erythema. Having some difficulty passing urine but no dysuria. Generally feeling well however and afebrile. Physical Exam Skin: significant swelling of penis and scrotum bilateral equal with surrounding erythema Results & Data Results & Data Vital Signs (Past 12 Hours) Vital Signs Temp Pulse Resp BP Pulse Ox O2 Del Method 03/08/25 08:02 36.6 C 86 16 135/85 96 Room Air PG Care Time/CCT Total # of Minutes Spent Total Time Spent with Patient: Total time spent is greater than 50% in coordination of care (as documented) at patient's floor/unit and/or counseling patient: Coding Level of Care Code 39642 SUB INP/OBS CARE 2/35MIN Diagnoses Cellulitis of scrotum N49.2 Permanent atrial fibrillation I48.2 Hypercholesterolemia E78.00 Hypothyroidism E03.9
[2025-03-08] MEDS: FLUCONAZOLE 100 MG TAB PO ONE (18:15)
[2025-03-08] MEDS: NYSTATIN POWDER 15GM BTL EXT SCH (21:27)
[2025-03-09] MEDS: PIPERACILLIN/TAZOBACTAM 4.5 GM/100 ML BAG IV ONE (02:18)
--- NOTE | 2025-03-09 03:19 | Communication Note ---
Date of Service: March 09, 2025 I was called by nursing staff concerning this patient at approximately 1:20 AM. I reported to bedside within 5 minutes at the request of nursing staff to reevaluate patient. This patient has been admitted with scrotal/penile cellulitis and edema. The patient had an outpatient ultrasound as well as a CT scan of the pelvis in the emergency department which did not demonstrate any evidence of gas in the soft tissue or any drainable fluid collections. The patient was treated with antifungals in the form of Lotrimin for concern for tinea infection and antibiotics in the form of Rocephin and vancomycin for cellulitis. During the course of his admission the patient had received a one-time dose of Diflucan also for tinea infection and he had his antibiotics de-escalated (vancomycin was discontinued and he remained only on Rocephin). The patient noted that he feels as though he has worsening swelling of his scrotum/testicles and he also notes erythema extension into his groins that is worse than what was noted previously. He denies any abdominal pain. He does note some tenderness with palpation of his scrotum. He denies any fevers, sha kes, or chills. As noted previously, the patient is not diabetic. On physical exam the patient has remained hemodynamically stableshe is normotensive without episodes of tachycardia or fever. His white blood cell count has improved to 11.4 from 13.4 at time of admission. The patient's scrotum was again examined and they are noted to have cellulitis encompassing the entire scrotum with some extension to the penile shaft. He also has erythema of the groins bilaterally (at approximately 6:00 PM on 03/08/2025 and nursing staff has drawn an outline of the groin erythema with a marker and the erythema has slightly extended past these li). There is no crepitus in any of the soft tissue of the groin, scrotum, or perineum. There are no areas of eschar. There are no open areas or areas of drainage. Due to the extension of the erythema noted in the groin we will broaden the patient's antibiotic coverageRocephin has been stopped and Zosyn has been initiated. Will also reinstitute vancomycin. Will also plan on reimaging the patient beginning with a scrotal ultrasound to see if there is any interval development of drainable fluid collections concerning for abscess and also to a ssess to see if there is any new gas in the soft tissue. Additional recommendations will be forthcoming based on his clinical response to the above antibiotic change as well as results of his pending ultrasound. Patient underwent repeat ultrasound of his scrotum. I initially discussed the findings with the technologist perform the study and there were no fluid collections or obvious gas noted in the soft tissue. Official radiology report shows that there is no testicular torsion's or masses. The scrotal wall appears thickened and edematous and appears unchanged from previous ultrasound. The interpreting radiologist notes that there are no hydroceles, pneumatoceles, or pyocele's. Patient was reevaluated multiple times. Most recently was at approximately 5:15 AM. Patient has requested blood cultures to be sent and these have been ordered. There may be slight extension of erythema across the previously noted border. Overall, however there is little to no change in physical exam and what was noted previously this evening. The patient has received escalated antibiotics in the form of Zosyn and reinstitution of vancomycin. Will continue to monitor his clinical course accordingly.
--- NOTE | 2025-03-09 04:24 | Ultrasound Report ---
EXAM: US scrotum/testicle CLINICAL HISTORY: scrotal swelling. TECHNIQUE: Real-time grayscale and color Doppler ultrasound of the scrotum was performed. Images were obtained in longitudinal and transverse planes. The vascular flow was evaluated using color flow and with a spectral pattern of the flow waveform. COMPARISON: 03/07/2025 US. FINDINGS: Right Testis: Size: Normal; 3.9 x 2.5 x 2.5 cm. Echotexture: Normal. Vascularity: Normal vascularity. No focal lesions, masses, or areas of abnormal echogenicity. Left Testis: Size: Normal; 3.2 x 2.1 x 1.9 cm. Echotexture: Possible multiple cysts are noted within the left testis, with the largest measuring 3 mm. Vascularity: Normal vascularity. No focal lesions, masses, or areas of abnormal echogenicity. Epididymis: Right Epididymis: Normal size and echotexture. Left Epididymis: Normal size and echotexture. A left epididymal head cyst is noted, measuring 0.5 x 0.7 x 0.6 cm. Scrotal Wall: Thickness: Markedly thickened with severe edema noted. Hydrocele/Hematocele/Pyocele: None. IMPRESSION: 1. No testicular torsion or suspicious testicular mass. Unchanged. 2. Left epididymal head cyst compared to prior study, which showed bilateral head cysts. 3. Thickened edematous scrotal wall with no hydrocele. Unchanged. 4. Please correlate clinically. Electronically signed by Ross Kellogg 03-09-2025 04:23 AM
--- NOTE | 2025-03-09 06:19 | Pharmacy Report ---
Pharmacy PK ABX Note - Date of Service March 09, 2025 - Assessment and Plan Assessment 03/09: Vancomycin discontinued yesterday and restarted this AM due to worsening of the cellulitis. Continue previous regimen, level tomorrow AM. 74 year old M receiving ceftriaxone/vancomycin for treatment of cellulitis of the scrotum. Day # 1 of antimicrobial therapy. Plan Vancomycin * Loading dose: 1750 mg IV x 1 * Maintenance dose: 1500 mg IV every 24 hours * Regimen is predicted to achieve target AUC/ALFIE of 400-600 mg/L.hr * Random level ordered for: 03/10/25 with AM labs Pharmacy will continue to follow and will adjust dose/frequency as necessary. Shayna conway. Pharmacy has transitioned to AUC monitoring for vancomycin. AUC/ALFIE is the preferred PK/PD target and is associated with decreased risk of nephrotoxicity compared to traditional trough targets.
[2025-03-09] MEDS: PIPERACILLIN/TAZOBACTAM 4.5 GM/100 ML BAG IV SCH (07:20)
[2025-03-09 07:58] LABS: Creatinine Clr Calc Pharmacy 56.2 ml/min
[2025-03-09 10:24] LABS: Hematocrit (blood only) 55.3 % (42.0-52.0); Hemoglobin 18.3 g/dl (14.0-18.0); Mean Corpuscular Hemoglobin 27.6 pg (25.0-34.0); Mean Corpuscular Volume 83.4 fL (80.0-100.0); Platelet Count 251 K/uL (130-400); RDW Standard Deviation 42.1 fL (36.4-46.3); Red Blood Count 6.63 M/uL (4.70-6.10); White Blood Count 12.71 K/ul (4.8-10.8)
[2025-03-09 10:34] LABS: Immature Granulocytes # (auto) 0.05 K/uL (0.01-0.20); Immature Granulocytes % (auto) 0.4 %
[2025-03-09 11:02] LABS: Anion Gap 13.0 (3-11); Calcium 9.8 mg/dl (8.6-10.3); Carbon Dioxide 22.0 mmol/L (21-32); Chloride 105.0 mmol/L (98-107); Potassium 4.1 mmol/L (3.5-5.1); Sodium 140.0 mmol/L (136-145)
[2025-03-09 11:07] LABS: Blood Urea Nitrogen 17.0 mg/dl (6-23); Glucose 100.0 mg/dl (70-99(Fasting))
[2025-03-09] MEDS: VANCOMYCIN HCL 1,500 MG in SODIUM CHLORIDE 0.9% 500 ML IV SCH (11:08)
--- NOTE | 2025-03-09 12:35 | Urology Progress Note ---
<Statement entered by Chris Lane MD - 03/10/25 07:27> Pt having ongoing redness and swelling of the scrotum. He is not having fevers/chills, no significant leukocytosis. On exam he is non-tender to palpation and i do not appreciate any fluctuance, crepitus or underlying induration. At this point I do not see any role for surgical intervention / drainage. Date of Service March 09, 2025 Assessment & Plan (1) Cellulitis of scrotum: Plan Pt afebrile with stable vitals. Labs- WBCs 12.71, Creatinine 1.38. Blood cultures pending. Due to concern of worsening cellulitis overnight, Rocephin was changed to Zosyn and Vancomycin restarted. He also received a dose of Diflucan. Exam consistent with cellulitis. No indication for surgical intervention at this time. Continue antibiotic therapy. Continue supportive care and scrotal elevation. Monitor ability to void, bladder scan as needed. Urology to follow. Admission and Anticipated Discharge Date Admission Date: March 07, 2025 Subjective Patient was seen at bedside this morning. Awake and resting in bed on arrival. NAD. No fevers or chills. Still with scrotal and penile edema and erythema. He feels the groin erythema has extended some. Has some mild tenderness but no significant pain. Voiding without issue. Review of Systems Constitutional: as per Subjective / HPI Genitourinary: + as per Subjective / HPI Physical Exam Constitutional: no acute distress Respiratory: no respiratory distress and no labored breathing Neurologic: moves all extremities and awake Psychiatric: A+Ox3, euthymic affect Genitourinary: There is scrotal and penile edema with surrounding erythema. Erythema of the groins bilaterally (nursing staff has drawn an outline of the groin erythema with a marker and the erythema has slightly extended past these li L>R). There is no crepitus in any of the soft tissue of the groin, scrotum, or perineum. There are no areas of eschar. There are no open areas or areas of drainage. Minimal tenderness on exam. Results & Data Vital Signs (Past 12 Hours) Vital Signs Temp Pulse Resp BP Pulse Ox O2 Del Method 03/09/25 07:43 36.7 C 83 16 145/88 H 95 Room Air PG Care Time/CCT Total # of Minutes Spent Total Time Spent with Patient: Total time spent is greater than 50% in coordination of care (as documented) at patient's floor/unit and/or counseling patient: Coding Level of Care Code 19639 SUB INP/OBS CARE 235MIN Diagnoses Cellulitis of scrotum N49.2
--- NOTE | 2025-03-09 21:06 | Hospitalist Progress Note ---
Date of Service March 09, 2025 Assessment & Plan (1) Cellulitis of scrotum: (2) Permanent atrial fibrillation: (3) Hypercholesterolemia: (4) Hypothyroidism: Plan 74yo male with history of permanent atrial fibrillation on Apixaban anticoagulation presenting with rapid progression of scrotal and penile swelling, preceded by 1+ week of tinea infection #Cellulitis of scrotum #Tinea Cruris -PVR < 400ml -Continue Zosyn + vancomycin pending clinical improvement, if continues to spread and CRP increasing by the morning will consider repeat CT pelvis as original study done without IV contrast -Fluconazole + nystatin powder given for tinea cruris -Elevate and use ice for swelling -Urology consultation appreciated - discussed with Dr Lane at bedside #Atrial fibrillation -Continue Apixaban 5mg po BID -Continue Metoprolol #Hyperlipidemia -Continue Atorvastatin #Hypothyroidism -Continue Synthroid VTE Prophylaxis - apixaban Disposition - changed to full admission, continue on med/surg pending significant clinical improvement Admission and Anticipated Discharge Date Admission Date: March 09, 2025 Subjective Getting worse overnight and switched back to vancomycin + Zosyn. Afebrile Updated his sister over the phone Physical Exam Gastrointestinal (Abdomen): normal bowel sounds, soft, nontender, no hepatosplenomegaly Skin: erythema and swelling spreading beyond marker drawn yesterday at 6pm with scrotal and penis swelling Results & Data Results & Data Vital Signs (Past 12 Hours) Vital Signs Temp Pulse Resp BP Pulse Ox O2 Del Method 03/09/25 14:51 36.7 C 88 16 101/65 96 Room Air PG Care Time/CCT Total # of Minutes Spent Total Time Spent with Patient: Total time spent is greater than 50% in coordination of care (as documented) at patient's floor/unit and/or counseling patient: Coding Level of Care Code 27730 SUB INP/OBS CARE 2/35MIN Diagnoses Cellulitis of scrotum N49.2 Permanent atrial fibrillation I48.2 Hypercholesterolemia E78.00 Hypothyroidism E03.9
[2025-03-10 05:57] LABS: Hematocrit (blood only) 50.6 % (42.0-52.0); Hemoglobin 16.9 g/dl (14.0-18.0); Immature Granulocytes # (auto) 0.07 K/uL (0.01-0.20); Immature Granulocytes % (auto) 0.6 %; Mean Corpuscular Hemoglobin 27.8 pg (25.0-34.0); Mean Corpuscular Volume 83.1 fL (80.0-100.0); Platelet Count 242 K/uL (130-400); RDW Standard Deviation 42.7 fL (36.4-46.3); Red Blood Count 6.09 M/uL (4.70-6.10); White Blood Count 12.11 K/ul (4.8-10.8)
[2025-03-10 06:14] LABS: Anion Gap 9.0 (3-11); Blood Urea Nitrogen 19.0 mg/dl (6-23); Calcium 9.4 mg/dl (8.6-10.3); Carbon Dioxide 26.0 mmol/L (21-32); Chloride 106.0 mmol/L (98-107); Creatinine Clr Calc Pharmacy 51.7 ml/min; Glucose 95.0 mg/dl (70-99(Fasting)); Potassium 4.5 mmol/L (3.5-5.1); Sodium 141.0 mmol/L (136-145)
[2025-03-10] MEDS: OPTIRAY 320 100ml IV ONE (08:35)
--- NOTE | 2025-03-10 08:50 | CT Scan Report ---
CT pelvis w/IV con only CLINICAL HISTORY: Spreading cellulitis ?forniers COMPARISON STUDY: 03/07/2025 FINDINGS: There is increased diffuse swelling and edema at the scrotum. There is subcutaneous soft ti ssue stranding at the adjacent anterior medial upper thighs, medial inguinal regions, and perineum wh ich is also mildly increased. No soft tissue gas or abscess seen. Prostate is enlarged. Urinary bladder is mildly distended. Visualized bowel shows no inflammation or obstruction. There is a minimally prominent left inguinal lymph node, likely reactive. Otherwise no e nlarged adenopathy seen. No acute osseous finding seen. IMPRESSION: Increased scrotal swelling and edema. Increased adjacent subcutaneous soft tissue strand ing consistent with cellulitis. No soft tissue gas or abscess seen. ACT 112: Negative or not required by law. Electronically signed by: Ron Cuellar M.D. 03/10/2025 8:49 AM
--- NOTE | 2025-03-10 11:10 | Pharmacy Report ---
Pharmacy PK ABX Note - Date of Service March 10, 2025 - Assessment and Plan Assessment 03/10: Day #4 vancomycin * The vancomycin level of 8.6mcg/ml that was drawn this morning extrapolates to an AUC in the target range. He is to remain on current vancomycin regimen. * Cellulitis continued to worsen so antibiotics were broadened to vancomycin + Zosyn on 03/09. * Leukocytosis continues (WBC 12.1 today), SCr has been floating up (1.24 on admit and 1.5 today), afebrile. * Preliminary blood cultures from 03/09 are no growth to date x 2, MRSA nasal swab negative 03/09: Vancomycin discontinued yesterday and restarted this AM due to worsening of the cellulitis. Continue previous regimen, level tomorrow AM. 74 year old M receiving ceftriaxone/vancomycin for treatment of cellulitis of the scrotum. Plan Vancomycin * Vanco level drawn today was 8.6mcg/ml which extrapolates to an AUC of 505mg/L.hr * Continue maintenance dose: 1500 mg IV every 24 hours * Regimen is predicted to achieve target AUC/ALFIE of 400-600 mg/L.hr * Another random level will be ordered in the next few days or as clinically necessary. Zosyn 4.5gm iv q 8 hours Pharmacy will continue to follow and will adjust dose/frequency as necessary. Thank you. Pharmacy has transitioned to AUC monitoring for vancomycin. AUC/ALFIE is the preferred PK/PD target and is associated with decreased risk of nephrotoxicity compared to traditional trough targets.
--- NOTE | 2025-03-10 12:45 | Urology Progress Note ---
Date of Service March 10, 2025 Assessment & Plan (1) Cellulitis of scrotum: Plan Pt afebrile with stable vitals. Labs- WBCs 12.11, Creatinine 1.50. Blood cultures prelim no growth x 24 hours. Continues on Zosyn and Vancomycin. Fluconazole + nystatin powder given for tinea cruris. Pt having ongoing redness and swelling of the scrotum. He is not having fevers/chills, no significant leukocytosis. On exam he is non-tender to palpation and there is no fluctuance, crepitus or underlying induration. Pelvis CT today showed scrotal edema consistent with cellulitis, no soft tissue gas or abscess seen. No indication for surgical intervention at this time. Continue antibiotic therapy. Continue supportive care, scrotal elevation and ice as needed. Monitor ability to void, bladder scan as needed. Patient can follow-up with urology as needed. Urology will sign-off, please contact us with any questions/concerns or changes in patient status. Plan reviewed with Dr. Marsh, on-call urologist. Admission and Anticipated Discharge Date Admission Date: March 09, 2025 Subjective Patient was seen at bedside this morning. Awake and resting in bed on arrival. NAD. No fevers or chills. Still with scrotal and penile edema and erythema. He feels the groin erythema has extended. Has been elevating the scrotum with some improvement in swelling today. Reports itching but no pain. Voiding without issue. Review of Systems Constitutional: as per Subjective / HPI Genitourinary: + as per Subjective / HPI Physical Exam Constitutional: no acute distress Respiratory: no respiratory distress and no labored breathing Neurologic: moves all extremities and awake Psychiatric: A+Ox3, euthymic affect Genitourinary: There is scrotal and penile edema with surrounding erythema. Edema has improved some since yesterday. Erythema of the groins bilaterally (nursing staff has drawn an outline of the groin erythema with a marker and the erythema has slightly extended past these li). There is no crepitus in any of the soft tissue of the groin, scrotum, or perineum. There are no areas of eschar. There are no open areas or areas of drainage. Results & Data Vital Signs (Past 12 Hours) Vital Signs Temp Pulse Resp BP Pulse Ox O2 Del Method 03/10/25 09:34 77 159/84 H 96 Room Air 03/10/25 07:54 36.5 C 84 16 121/84 95 Room Air PG Care Time/CCT Total # of Minutes Spent Total Time Spent with Patient: Total time spent is greater than 50% in coordination of care (as documented) at patient's floor/unit and/or counseling patient: Coding Level of Care Code 24756 SUB INP/OBS CARE 2/35MIN Diagnoses Cellulitis of scrotum N49.2
[2025-03-10] MEDS: FLUCONAZOLE 100 MG TAB PO SCH (13:05)
[2025-03-11 08:45] LABS: Hematocrit (blood only) 50.2 % (42.0-52.0); Hemoglobin 17.4 g/dl (14.0-18.0); Immature Granulocytes # (auto) 0.14 K/uL (0.01-0.20); Immature Granulocytes % (auto) 1.3 %; Mean Corpuscular Hemoglobin 28.7 pg (25.0-34.0); Mean Corpuscular Volume 82.7 fL (80.0-100.0); Platelet Count 254 K/uL (130-400); RDW Standard Deviation 41.4 fL (36.4-46.3); Red Blood Count 6.07 M/uL (4.70-6.10); White Blood Count 11.13 K/ul (4.8-10.8)
[2025-03-11 09:06] LABS: Anion Gap 9.0 (3-11); Calcium 9.6 mg/dl (8.6-10.3); Carbon Dioxide 25.0 mmol/L (21-32); Chloride 106.0 mmol/L (98-107); Potassium 4.2 mmol/L (3.5-5.1); Sodium 140.0 mmol/L (136-145)
[2025-03-11 09:11] LABS: Blood Urea Nitrogen 16.0 mg/dl (6-23); Creatinine Clr Calc Pharmacy 58.8 ml/min; Glucose 85.0 mg/dl (70-99(Fasting))
[2025-03-11] MEDS: CLOTRIMAZOLE 1% CR 15 GM TUBE EXT SCH (11:22)
--- NOTE | 2025-03-11 15:10 | Hospitalist Progress Note ---
Date of Service March 10, 2025 Assessment & Plan (1) Cellulitis of scrotum: (2) Permanent atrial fibrillation: (3) Hypercholesterolemia: (4) Hypothyroidism: Plan 74yo male with history of permanent atrial fibrillation on Apixaban anticoagulation presenting with rapid progression of scrotal and penile swelling, preceded by 1+ week of tinea infection #Cellulitis of scrotum #Tinea Cruris -PVR < 400ml -Continue Zosyn + vancomycin pending clinical improvement -Fluconazole (made daily) + nystatin powder given for tinea cruris -Elevate (using wedge pillow) and use ice for swelling -Urology consultation appreciated #Atrial fibrillation -Continue Apixaban 5mg po BID -Continue Metoprolol #Hyperlipidemia -Continue Atorvastatin #Hypothyroidism -Continue Synthroid VTE Prophylaxis - apixaban Disposition - continue on med/surg pending significant clinical improvement Admission and Anticipated Discharge Date Admission Date: March 09, 2025 Subjective Erythema and swelling stable. Discussed bringing in wedge pillow to help with swelling. He mentioned using clindamycin which I do not think is necessary. Physical Exam Skin: Stable swelling and erythema of both upper thighs, scrotum and penis, no phimosis, no areas of purple discoloration Results & Data Results & Data Vital Signs (Past 12 Hours) Vital Signs Temp Pulse Resp BP Pulse Ox O2 Del Method 03/11/25 07:57 36.5 C 79 18 124/77 95 Room Air PG Care Time/CCT Total # of Minutes Spent Total Time Spent with Patient: Total time spent is greater than 50% in coordination of care (as documented) at patient's floor/unit and/or counseling patient: Coding Level of Care Code 29234 SUB INP/OBS CARE 2/35MIN Diagnoses Cellulitis of scrotum N49.2 Permanent atrial fibrillation I48.2 Hypercholesterolemia E78.00 Hypothyroidism E03.9
--- NOTE | 2025-03-11 18:04 | Hospitalist Progress Note ---
Date of Service March 11, 2025 Assessment & Plan (1) Cellulitis of scrotum: (2) Permanent atrial fibrillation: (3) Hypercholesterolemia: (4) Hypothyroidism: Plan 74yo male with history of permanent atrial fibrillation on Apixaban anticoagulation presenting with rapid progression of scrotal and penile swelling, preceded by 1+ week of tinea infection #Cellulitis of scrotum #Tinea Cruris - PVR < 400ml - Continue Zosyn + vancomycin, likely transition to PO antibiotics tomorrow - Fluconazole + nystatin powder given for tinea cruris, will restart clotrimazole cream to see if it was an allergic reaction previously as likely to improve quicker with antifungal creams - Elevate and use ice for swelling - Urology consultation appreciated #Atrial fibrillation - Continue Apixaban 5mg po BID - Continue Metoprolol #Hyperlipidemia - Continue Atorvastatin #Hypothyroidism - Continue Synthroid VTE Prophylaxis - apixaban Disposition - continue on med/surg, possible discharge tomorrow Admission and Anticipated Discharge Date Admission Date: March 09, 2025 Subjective Improvement with wedge pillow propping up legs, swelling and erythema improved. Afebrile. Discussed trying antifungal creams again which he is willing to try to see if he did have an allergic reaction. Physical Exam Skin: Improving swelling and erythema of groin, scrotal swelling penis Results & Data Results & Data Vital Signs (Past 12 Hours) Vital Signs Temp Pulse Resp BP Pulse Ox O2 Del Method 03/11/25 16:05 36.2 C L 67 16 120/84 96 Room Air 03/11/25 07:57 36.5 C 79 18 124/77 95 Room Air PG Care Time/CCT Total # of Minutes Spent Total Time Spent with Patient: Total time spent is greater than 50% in coordination of care (as documented) at patient's floor/unit and/or counseling patient: Coding Level of Care Code 66703 SUB INP/OBS CARE 2/35MIN Diagnoses Cellulitis of scrotum N49.2 Permanent atrial fibrillation I48.2 Hypercholesterolemia E78.00 Hypothyroidism E03.9
[2025-03-12] MEDS: diphenhydrAMINE Capsule 25 MG CAP PO ONE (03:12)
[2025-03-12 06:57] LABS: Hematocrit (blood only) 51.8 % (42.0-52.0); Hemoglobin 16.9 g/dl (14.0-18.0); Immature Granulocytes # (auto) 0.07 K/uL (0.01-0.20); Immature Granulocytes % (auto) 0.5 %; Mean Corpuscular Hemoglobin 27.4 pg (25.0-34.0); Mean Corpuscular Volume 84.0 fL (80.0-100.0); Platelet Count 273 K/uL (130-400); RDW Standard Deviation 42.6 fL (36.4-46.3); Red Blood Count 6.17 M/uL (4.70-6.10); White Blood Count 14.84 K/ul (4.8-10.8)
[2025-03-12 07:13] LABS: Anion Gap 7.0 (3-11); Blood Urea Nitrogen 16.0 mg/dl (6-23); Calcium 9.0 mg/dl (8.6-10.3); Carbon Dioxide 28.0 mmol/L (21-32); Chloride 106.0 mmol/L (98-107); Creatinine Clr Calc Pharmacy 54.2 ml/min; Glucose 94.0 mg/dl (70-99(Fasting)); Potassium 4.5 mmol/L (3.5-5.1); Sodium 141.0 mmol/L (136-145)
[2025-03-12] MEDS ORDERED: diphenhydrAMINE Capsule 25 MG CAP PO PRN (09:17)
[2025-03-12] MEDS: VANCOMYCIN LEVEL ONE (10:29)
[2025-03-12] MEDS: CETIRIZINE HCL 10 MG TABLET PO SCH (11:00)
--- NOTE | 2025-03-12 12:41 | Hospitalist Progress Note ---
Date of Service March 12, 2025 Assessment & Plan (1) Cellulitis of scrotum: (2) Permanent atrial fibrillation: (3) Hypercholesterolemia: (4) Hypothyroidism: Plan 74yo male with history of permanent atrial fibrillation on Apixaban anticoagulation presenting with rapid progression of scrotal and penile swelling, preceded by 1+ week of tinea infection #Cellulitis of scrotum #Tinea Cruris -PVR < 400ml -Continue Zosyn + vancomycin pending clinical improvement, planning on switching to Levaquin + doxycycline on discharge -Fluconazole (made daily) + nystatin powder given for tinea cruris -Elevate (using wedge pillow) and use ice for swelling -Urology consultation appreciated Allergic reaction to clotrimazole cream Suspect most of his swelling if not all is actually an allergic reaction with hindsight given clear worsening overnight after restarting the clotrimazole cream Most likely an allergy to an ingredient in the cream rather than clotrimazole itself therefore not added to allergy list Advised to wash of cream in shower and reapply nystatin powder Start cetirizine 10mg PO daily, diphenhydramine as needed at night #Atrial fibrillation -Continue Apixaban 5mg po BID -Continue Metoprolol #Hyperlipidemia -Continue Atorvastatin #Hypothyroidism -Continue Synthroid VTE Prophylaxis - apixaban Disposition - continue on med/surg pending significant clinical improvement Admission and Anticipated Discharge Date Admission Date: March 09, 2025 Subjective Worse erythema and swelling today after restarted clotrimazole cream yesterday. Clear reaction to the cream as he put it on testing spots on his legs which also had a reaction. Physical Exam Skin: Worsening erythema and swelling on upper thighs, erythema on area of mid thigh that cream was placed on both legs Results & Data Results & Data Vital Signs (Past 12 Hours) Vital Signs Temp Pulse Resp BP Pulse Ox O2 Del Method 03/12/25 07:09 37.1 C 78 20 136/73 97 Room Air 03/12/25 02:49 36.4 C L 89 18 95/63 L 94 Room Air PG Care Time/CCT Total # of Minutes Spent Total Time Spent with Patient: Total time spent is greater than 50% in coordination of care (as documented) at patient's floor/unit and/or counseling patient: Coding Level of Care Code 84407 SUB INP/OBS CARE 2/35MIN Diagnoses Cellulitis of scrotum N49.2 Permanent atrial fibrillation I48.2 Hypercholesterolemia E78.00 Hypothyroidism E03.9
[2025-03-12 13:27] LABS: Hematocrit (blood only) 50.7 % (42.0-52.0); Hemoglobin 16.8 g/dl (14.0-18.0); Immature Granulocytes # (auto) 0.06 K/uL (0.01-0.20); Immature Granulocytes % (auto) 0.5 %; Mean Corpuscular Hemoglobin 27.9 pg (25.0-34.0); Mean Corpuscular Volume 84.1 fL (80.0-100.0); Platelet Count 269 K/uL (130-400); RDW Standard Deviation 42.5 fL (36.4-46.3); Red Blood Count 6.03 M/uL (4.70-6.10); White Blood Count 12.21 K/ul (4.8-10.8)
[2025-03-13 06:38] LABS: Hematocrit (blood only) 50.1 % (42.0-52.0); Hemoglobin 16.5 g/dl (14.0-18.0); Immature Granulocytes # (auto) 0.03 K/uL (0.01-0.20); Immature Granulocytes % (auto) 0.3 %; Mean Corpuscular Hemoglobin 27.6 pg (25.0-34.0); Mean Corpuscular Volume 83.8 fL (80.0-100.0); Platelet Count 264 K/uL (130-400); RDW Standard Deviation 42.8 fL (36.4-46.3); Red Blood Count 5.98 M/uL (4.70-6.10); White Blood Count 10.41 K/ul (4.8-10.8)
[2025-03-13 07:01] LABS: Anion Gap 7 (3-11); Blood Urea Nitrogen 16 mg/dl (6-23); Calcium 9.4 mg/dl (8.6-10.3); Carbon Dioxide 26 mmol/L (21-32); Chloride 108 mmol/L (98-107); Creatinine Clr Calc Pharmacy 56.2 ml/min; Glucose 91 mg/dl (70-99(Fasting)); Potassium 4.0 mmol/L (3.5-5.1); Sodium 141 mmol/L (136-145)
[2025-03-13 07:13] VITALS: BP 140/88; PULSE 65; RESP 16; TEMP 97.3; O2SAT 97
--- NOTE | 2025-03-13 09:57 | Pharmacy Report ---
Pharmacy PK ABX Note - Date of Service March 13, 2025 - Assessment and Plan Assessment 03/13: * Vancomycin random level this AM came back at ~9 mcg/ml - will increase vancomycin dosing this AM to achieve AUC/ALFIE 400-600 03/10: Day #4 vancomycin * The vancomycin level of 8.6mcg/ml that was drawn this morning extrapolates to an AUC in the target range. He is to remain on current vancomycin regimen. * Cellulitis continued to worsen so antibiotics were broadened to vancomycin + Z osyn on 03/09. * Leukocytosis continues (WBC 12.1 today), SCr has been floating up (1.24 on admit and 1.5 today), afebrile. * Preliminary blood cultures from 03/09 are no growth to date x 2, MRSA nasal swab negative 03/09: Vancomycin discontinued yesterday and restarted this AM due to worsening of the cellulitis. Continue previous regimen, level tomorrow AM. 74 year old M receiving ceftriaxone/vancomycin for treatment of cellulitis of the scrotum. Plan Vancomycin * Increase to 1750 mg iv q 24 hours * Will recheck in next 3-4 days if continued Zosyn 4.5gm iv q 8 hours Pharmacy will continue to follow and will adjust dose/frequency as necessary. Thank you. Pharmacy has transitioned to AUC monitoring for vancomycin. AUC/ALFIE is the preferred PK/PD target and is associated with decreased risk of nephrotoxicity compared to traditional trough targets.
[2025-03-13] MEDS: VANCOMYCIN LEVEL ONE (11:03)
--- NOTE | 2025-03-13 11:15 | Discharge Summary ---
Discharge Summary Date of Service March 13, 2025 Principal Dx & Hospital Course #1 = Principal Diagnosis (1) Cellulitis of scrotum: (2) Permanent atrial fibrillation: (3) Hypercholesterolemia: (4) Hypothyroidism: (5) Tinea cruris: Plan Bib Chino is a 74 year old male admitted to [facility] from March 07 - March 13, 2025 due to scrotal swelling and erythema. He was diagnosed with tinea cruris treated with oral fluconazole and nystatin powder. Once weekly fluconazole was given on discharge for him to use as needed if the itching continues and concern for ongoing fungal infection. He should continue to use nystatin powder. He was also diagnosed with scrotal bacterial cellulitis treated with vancomycin and Zosyn and will be transitioned to Levofloxacin and doxycycline on discharge for an additional 4 days. An additional course of Augmentin was prescribed if your symptoms return while on vacation. Although suspect a lot of the swelling and erythema was due to allergy clotrimazole cream which prolonged his hospitalization and you should avoid this in the future. Suspect his allergy is due to additives in the cream rather than the clotrimazole itself. If he tries a cream in the future recommend using a trial patch on your arm before more extensive use. Notes For Next Care Provider Routine follow up from hospitalization Medication Changes From Visit Levofloxacin + doxycycline for scrotal cellulitis Nystatin powder and weekly fluconazole as needed for tinea cruris Additional "pill in pocket" Augmentin prescribed as he is going on a river cruise but only needs to take this is cellulitis returns Admission HPI Per Admitting Provider Bib Chino is a pleasant 74yo male with history of atrial fibrillation on Apixaban anticoagulation, HLP and GERD presenting with groin rash and progressive swelling in the scrotum and penis. Patient is a fairly avid cyclist. He last biked approximately one week ago. Patient noted some symptoms of tinea cruris approximately 10 days ago with itching in his groin and skin irritation. He let it go for a couple of days then started using some over the counter cream from [employer] and powder. The itching has progressively worsened over the last 10 days. Last night around 17:00 patient noted some scrotal swelling which was markedly increased today. He urinated around 09:30 and noted some swelling at the base of his penis - approximately 2cm x 1cm x 1cm. He was seen in his PCPs office today at 12:30. He had a scrotal ultrasound performed which revealed no testicular masses or torsions. Prominent edematous scrotal wall without discrete fluid collection and no hydrocele. He was prescribed Nystatin powder and Bactrim. Patient returned home. Approximately 1 hour later he noted some markedly increased scrotal swelling which prompted him to come to the ER. He has been afebrile, no chills. No abdominal pain or pelvic pain. No nausea, vomiting, chest pain, palpitations. No additional complaints at this time. No trauma. No urinary complaints. In the ER he is afebrile, HD stable, NAD ER Course: Zosyn Discharge Exam Skin dark erythema in groin similar to trial patches of cream on upper thighs Bright erythema and swelling improved Discharge Plan Discharge Items Patient Disposition: Home - Self-Care Reason For Visit: SCROTAL CELLULITIS Discharge Diagnosis: Scrotal cellulitis Tinea Cruris Allergic reaction to clotrimazole cream Condition on Discharge: Fair Activity: Resume your previous activity Non-emergency contact: Primary Care Provider Call non-emergency contact if: you have any medication questions and your symptoms worsen Follow-up/Referrals: Palomo Navarro MD [Primary Care Provider] - 03/22/25 11:00 am Diet: Regular Addtl Attending Provider Instructions: You were admitted to [facility] from March 07 - March 13, 2025 due to scrotal swelling and redness. You were diagnosed with tinea cruris treated with oral fluconazole and nystatin powder, please continue with nystatin powder on discharge. Use fluconazole tablet once a week (200mg) if the itching continues and concern for ongoing fungal infection. You were also diagnosed with scrotal bacterial cellulitis treated with vancomycin and Zosyn and will be transitioned to Levofloxacin and doxycycline on discharge for an additional 4 days. An additional course of Augmentin was prescribed if your symptoms return while on vacation. Suspect a lot of the swelling and redness was due to clotrimazole cream and you should avoid this in the future. If you try a cream in the future recommend using a trial patch on your arm before more extensive use. Pending Studies at Discharge: No Stand-Alone Forms: My [facility], Smoking Cessation Medications and DC Order Prescriptions: New levofloxacin 750 mg tablet 750 mg PO DAILY 4 Days Qty: 4 0RF doxycycline hyclate 100 mg tablet 100 mg PO BID 4 Days Qty: 8 0RF nystatin 100,000 unit/gram powder 1 applic topical BID Qty: 60 1RF fluconazole 200 mg tablet 200 mg PO DAILY PRN (Reason: Tinea Cruris) Qty: 2 0RF amoxicillin-pot clavulanate 875-125 mg tablet 1 tab PO BID 7 Days Qty: 14 0RF Rx Instructions: Take as needed if swelling, erythema returns after finishing Levquin/doxycycline Continued metoprolol succinate 50 mg tablet extended release 24 hr 50 mg PO QAM Qty: 90 3RF levothyroxine 75 mcg tablet 75 mcg PO QAM Qty: 90 3RF atorvastatin 20 mg tablet 20 mg PO QPM Qty: 90 3RF apixaban 5 mg tablet 5 mg PO BID Qty: 180 3RF Macular Health Formula 5-1-7.5 mg Capsule 1 cap PO QAM Discontinued sulfamethoxazole-trimethoprim [Bactrim DS] 800-160 mg tablet 1 tab PO BID 10 Days Qty: 20 0RF nystatin 100,000 unit/gram ointment 1 applic topical BID Qty: 30 0RF Discharge Orders: Discharge Order (Routine); Ordered 03/13/25 Ordered By: Shravan Camargo/Other Patient Handouts: Cellulitis Dc, ED Tinea CrurisNaga Itch Admission Data Admit Date/Time: 03/09/25 18:58 Attending Provider: Shravan Pascual Admit Provider: Deneen Clancy Primary Care Provider: Palomo Navarro V. Other Providers: Deneen Clancy; Chris Lane Other Interventions: Discharge Summary Assessment (RN) Last Done: 03/13/25 12:11 Hospital Stay Data Consultations 03/07/25 19:16 ED Decision to Admit Stat 03/07/25 23:18 Consult Urology Routine Diagnostic Imagining Performed 03/07/25 18:48 CT abd pelvis wo con Stat 03/09/25 01:53 US scrotum/testicle Stat 03/10/25 07:17 CT pelvis w/IV con only Stat Pending Results Patient Have Any Pending Studies at Discharge: No Discharge Instructions Given to Patient (Per Discharging Provider) You were admitted to [facility] from March 07 - March 13, 2025 due to scrotal swelling and redness. You were diagnosed with tinea cruris treated with oral fluconazole and nystatin powder, please continue with nystatin powder on discharge. Use fluconazole tablet once a week (200mg) if the itching continues and concern for ongoing fungal infection. You were also diagnosed with scrotal bacterial cellulitis treated with vancomycin and Zosyn and will be transitioned to Levofloxacin and doxycycline on discharge for an additional 4 days. An additional course of Augmentin was prescribed if your symptoms return while on vacation. Suspect a lot of the swelling and redness was due to clot rimazole cream and you should avoid this in the future. If you try a cream in the future recommend using a trial patch on your arm before more extensive use. Total Time Total Time Spent Total Time Spent (In Minutes): 35 Total Time Includes: Examination of the Patient, Discharge Planning and Medication Reconciliation Coding Level of Care Code 31756 INP/OBS DISCH >30 MIN Diagnoses Cellulitis of scrotum N49.2 Permanent atrial fibrillation I48.2 Hypercholesterolemia E78.00 Hypothyroidism E03.9 Tinea cruris B35.6
[2025-03-13] MEDS: VANCOMYCIN HCL 1,750 MG in SODIUM CHLORIDE 0.9% 500 ML IV SCH (11:29)
== END 2025-03-13 15:12 | disposition home or self-care (01) | DRG 728 ==
LOC: 3N 17:02 → ED 17:02 → SUATTDRO 19:45 → 3N 21:39 → SUATTDRO 03-09 18:16